=== PATIENT | female | born 1950 | race Caucasian/White ===

== ENCOUNTER 2019-12-04 16:42 | Emergency (ER) | payer MEDICARE ==
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
[2019-12-04 17:57] VITALS: BP 136/84; TEMP 97.9; O2SAT 95
== END 2019-12-04 17:40 | disposition left against medical advice (07) ==
LOC: ER 16:42
DX: G40.909 Epilepsy, unspecified, not intractable, without status epilepticus (principal); R55 Syncope and collapse; V47.5XXA Car driver injured in collision with fixed or stationary object in traffic accident, initial encounter
CPT/HCPCS: 99283

== ENCOUNTER 2019-12-30 11:38 | Emergency (ER) | payer MEDICARE ==
[2019-12-30] MEDS ORDERED: LORazepam 2 MG/ML VIAL ONE (12:46)
[2019-12-30 12:48] LABS: Absolute Lymphocytes (CBC) 0.9 K/uL (0.7-4.9); Basophils % 1.1 % (0-1.3); Hematocrit 38.2 % (36.0-45.0); Lymphocytes % 25.9 % (15.3-44.8); MPV 8.4 fL (7.6-11.3); RBC Red Blood Cell Count 4.31 M/uL (3.86-4.86)
[2019-12-30 13:16] LABS: BUN Blood Urea Nitrogen 12 mg/dL (7-18); Bicarbonate 29 mmol/L (21-32); Glucose Level 100 mg/dL (74-106); Potassium 4.2 mmol/L (3.5-5.1); Sodium Level 141 mmol/L (136-145); Troponin (Emerg Dept Use Only) < 0.02 ng/mL (0.0-0.045)
--- NOTE | 2019-12-30 13:24 | RAD REPORT ---
EXAM DESCRIPTION: RAD - C Spine Ap/Lat - 12/30/2019 1:18 pm CLINICAL HISTORY: PAIN Radiculopathy COMPARISON: No comparisons FINDINGS: Cervical bodies are normal in height and alignment.No fracture or acute bony process seen. Multilevel disc thinning with posterior osteophyte formation throughout the cervical spine compatible with moderate cervical spondylosis. No prevertebral soft tissue thickening or other suspicious soft tissue finding. The odontoid is normal and the lateral masses are symmetric. IMPRESSION: Moderate degenerative cervical spondylosis.
--- NOTE | 2019-12-30 13:26 | RAD REPORT ---
EXAM DESCRIPTION: RAD - Chest Single View - 12/30/2019 1:18 pm CLINICAL HISTORY: BLUNT CHEST TRAUMA Chest pain. COMPARISON: No comparisons FINDINGS: Portable technique limits examination quality. Mild linear atelectasis is present in the left lung base. The heart is normal in size. Fracture of th e distal right clavicle suspected, age undetermined. Advise correlation with point tenderness in this region.
--- NOTE | 2019-12-30 13:27 | RAD REPORT ---
EXAM DESCRIPTION: RAD - Humerus Right - 12/30/2019 1:18 pm CLINICAL HISTORY: PAIN Fall, trauma, pain COMPARISON: No comparisons FINDINGS: No fracture of the humerus is seen. There is bony irregularity of the distal right clavicl e suggesting fracture, age undetermined. Correlation with point tenderness in this region is advised. No dislocation evident.
[2019-12-30 14:19] VITALS: TEMP 98.1
[2019-12-30 14:20] VITALS: O2SAT 96
[2019-12-30 14:21] VITALS: BP 120/67
--- NOTE | 2019-12-31 12:53 | EKG ---
Test Date: 2019-12-30 Test Time: 12:32:08 Production Director: EMILY MEASUREMENT RESULTS: Intervals: Rate: 79 WV: 164 QRSD: 70 QT: 350 QTc: 401 [place]: P: 61 WV: 164 QRS: 54 T: 52 INTERPRETIVE STATEMENTS: Normal sinus rhythm Low voltage QRS Borderline ECG No previous ECG available for comparison Electronically Signed On 12-31-19 12:50:40 CDT by Sumanth Resendiz
--- NOTE | 2020-01-05 13:18 | ER ---
Nurse's Notes [facility] Name: Kandis Marcum Age: 69 yrs Sex: Female : 1950 Arrival Date: 12/30/2019 Time: 11:39 Bed 6 Private MD: Diagnosis: Nondisplaced fracture of lateral end of right clavicle Presentation: 12/29 11:40 Onset of symptoms was December 2019. aa5 11:40 Chief complaint: Patient states: "I passed out a couple of days ago and my right aa5 shoulder is hurting". Pt denies nausea/vomiting. Pt reports she does not recall details before or after syncopal episode. 11:40 Acuity: MICHAEL 3 aa5 11:40 Method Of Arrival: Ambulatory aa5 11:40 Coronavirus screen: Proceed with normal triage. Patient denies a cough. Patient denies aa5 shortness of breath or difficulty breathing. Patient denies measured and/or subjective temperature greater than 100.4F prior to today's visit. Patient denies travel on a cruise ship or to a country the [facility] currently lists as an affected area. Patient denies contact with known and/or suspected case of COVID-19. Ebola Screen: Patient negative for fever greater than or equal to 101.5 degrees Fahrenheit, and additional compatible Ebola Virus Disease symptoms. Initial Sepsis Screen: Does the patient meet any 2 criteria? No. Patient's initial sepsis screen is negative. Does the patient have a suspected source of infection? No. Patient's initial sepsis screen is negative. Risk Assessment: Do you want to hurt yourself or someone else? Patient reports no desire to harm self or others. Historical: - Allergies: 11:40 No Known Allergies; aa5 - Home Meds: 11:40 Dilantin Oral [Active]; aa5 - PMHx: 11:40 epilepsy; aa5 - PSHx: 11:40 right knee; aa5 - Immunization history:: Adult Immunizations unknown. - Social history:: Smoking status: Patient denies any tobacco usage or history of. - Family history:: not pertinent. - Hospitalizations: : No recent hospitalization is reported. Screenin:48 Abuse screen: Denies threats or abuse. Denies injuries from another. Nutritional jl7 screening: No deficits noted. Tuberculosis screening: No symptoms or risk factors identified. Fall Risk Fall in past 12 months (25 points). Secondary diagnosis (15 points) seizures, IV access (20 points). Total Sanchez Fall Scale indicates High Risk Score (45 or more points). Fall prevention measures have been instituted. Side Rails Up X 2 Placed Close to Nursing Station Frequent Obs/Assessments Occuring As available patient and family educated on Fall Prevention Program and Strategies. Assessment: 12:20 General: Appears in no apparent distress. uncomfortable, Behavior is cooperative, jl7 anxious. Pain: Complains of pain in right shoulder Pain does not radiate. Pain currently is 7 out of 10 on a pain scale. Pain began 2-3 days ago. Is continuous. Neuro: Level of Consciousness is awake, alert, obeys commands, Oriented to person, place, time, situation. Cardiovascular: Patient's skin is warm and dry. Respiratory: Airway is patent Respiratory effort is even, unlabored, Respiratory pattern is symmetrical, tachypnea. Derm: Skin is pink, warm \\T\\ dry. Bruising that is brown, yellow, on anterior aspect of right upper chest. Musculoskeletal: Range of motion: limited in right shoulder. 12:35 Reassessment: Pt states "I have an ora prior to having a seizure and I'm having renee vu jl7 right now." Seizure pads placed on bed, ERD notified, VO for 0.5 mg Ativan IVP. 12:47 Reassessment: Pt to x-ray via stretcher. jl7 13:20 Reassessment: Pt returned from x-ray. jl7 14:09 Reassessment: Patient is alert, oriented x 3, equal unlabored respirations, skin aa5 warm/dry/pink. 14:09 Reassessment: Sling applied to right arm . aa5 Vital Signs: 11:40 BP 120 / 66; Pulse 72; Resp 18 S; Temp 98.1(O); Pulse Ox 98% on R/A; Weight 79.38 kg aa5 (R); Height 5 ft. 3 in. (160.02 cm) (R); Pain 7/10; 12:15 BP 116 / 69; Pulse 79; Resp 19; Pulse Ox 96% ; jl7 13:40 BP 120 / 67; Pulse 77; Resp 14 S; Pulse Ox 96% on R/A; jl7 11:40 Body Mass Index 31.00 (79.38 kg, 160.02 cm) aa5 ED Course: 11:39 Patient arrived in ED. as 11:39 Arm band placed on Patient placed. aa5 11:50 Tobi Saravia MD is Attending Physician. rn 11:56 Triage completed. aa5 12:10 Raymond Ruano, RN is Primary Nurse. jl7 12:30 Initial lab(s) drawn, by me, sent to lab. EKG done, by ED staff, reviewed by Tobi Saravia MD. Inserted saline lock: 20 gauge in left antecubital area, using aseptic technique. Blood collected. 12:48 Patient has correct armband on for positive identification. Placed in gown. Bed in low jl7 position. Call light in reach. Side rails up X2. Seizure precautions initiated. laboratory monitor on. Pulse ox on. NIBP on. 13:20 XRAY Humerus RIGHT In Process Unspecified. EDMS 13:20 XRAY Chest (1 view) In Process Unspecified. EDMS 13:20 XRAY C Spine Ap/lat In Process Unspecified. EDMS 13:42 Fracisco Barr MD is Referral Physician. rn 14:09 No provider procedures requiring assistance completed. IV discontinued, intact, aa5 bleeding controlled, No redness/swelling at site. Pressure dressing applied. Administered Medications: 12:45 Drug: Ativan 0.5 mg Route: IVP; Site: left antecubital; jl7 Outcome: 13:42 Discharge ordered by MD. rn 14:09 Discharged to home ambulatory. aa5 14:09 Condition: stable 14:09 Discharge instructions given to patient, Instructed on discharge instructions, follow up and referral plans. medication usage, Demonstrated understanding of instructions, follow-up care. 14:11 Patient left the ED. aa5 Signatures: Dispatcher [employer] Ariadna Lord Roman, MD MD rn Calderon, Audri, RN RN aa5 Raymond Ruano, DORENE CATHERINE jl7
--- NOTE | 2020-01-05 13:18 | EDPHYS ---
Physician Documentation [facility] Name: Kandis Marcum Age: 69 yrs Sex: Female : 1950 Arrival Date: 12/30/2019 Time: 11:39 Bed 6 Private MD: ED Physician Tobi Saravia HPI: 12/29 13:37 This 69 yrs old Female presents to ER via Ambulatory with complaints of rn Passed Out 3 days ago, Shoulder Injury. 13:37 The patient has experienced syncope. Onset: The symptoms/episode began/occurred 3 rn day(s) ago. Duration: This was a single episode. Associated injury: Other: decreased range of motion, pain. The patient has not experienced similar symptoms in the past. Reports passed out 3 days ago, fell, hurt right shoulder on that fall. Reports several episode in past of syncope, has been worked up before without known problems. Denies heart problems. Does have epilepsy, but compliant with dilantin. No headache.. Historical: - Allergies: 11:40 No Known Allergies; aa5 - Home Meds: 11:40 Dilantin Oral [Active]; aa5 - PMHx: 11:40 epilepsy; aa5 - PSHx: 11:40 right knee; aa5 - Immunization history:: Adult Immunizations unknown. - Social history:: Smoking status: Patient denies any tobacco usage or history of. - Family history:: not pertinent. - Hospitalizations: : No recent hospitalization is reported. ROS: 13:37 Constitutional: Negative for fever, chills, and weight loss, Eyes: Negative for injury, rn pain, redness, and discharge, Neck: + mild neck pain Cardiovascular: Negative for palpitations, and edema, Respiratory: Negative for shortness of breath, cough, wheezing, and pleuritic chest pain, Abdomen/GI: Negative for abdominal pain, nausea, vomiting, diarrhea, and constipation, Back: Negative for injury and pain, MS/Extremity: + right shoulder and collarbone pain Skin: Negative for injury, rash, and discoloration, Neuro: Negative for headache, weakness, numbness, tingling, and seizure. Exam: 13:10 ECG was reviewed by the Attending Physician. rn 13:37 Constitutional: This is a well developed, well nourished patient who is awake, alert, rn and in no acute distress. Head/Face: Normocephalic, atraumatic. Neck: No midline tenderness, + mild right pericervical tenderness Chest/axilla: Normal chest wall appearance and motion. Nontender with no deformity. No lesions are appreciated. No focal rib tenderness Cardiovascular: Regular rate and rhythm. No pulse deficits. Respiratory: No increased work of breathing, no retractions or nasal flaring. Abdomen/GI: soft, non-tender Back: No spinal tenderness. No costovertebral tenderness. Full range of motion. MS/ Extremity: Pulses equal, no cyanosis. + right distal clavicle tenderness, pain with elevation near horizontal, + ecchymosis right axilla and near shoulder joint. No open wounds. Neuro: Awake and alert, GCS 15, oriented to person, place, time, and situation. Cranial nerves II-XII grossly intact. Motor strength 5/5 in all extremities. Sensory grossly intact. Vital Signs: 11:40 BP 120 / 66; Pulse 72; Resp 18 S; Temp 98.1(O); Pulse Ox 98% on R/A; Weight 79.38 kg aa5 (R); Height 5 ft. 3 in. (160.02 cm) (R); Pain 7/10; 12:15 BP 116 / 69; Pulse 79; Resp 19; Pulse Ox 96% ; jl7 13:40 BP 120 / 67; Pulse 77; Resp 14 S; Pulse Ox 96% on R/A; jl7 11:40 Body Mass Index 31.00 (79.38 kg, 160.02 cm) aa5 MDM: 11:50 Patient medically screened. rn 12:39 ED course: Pt became anxious, hyperventilating, states sometimes gets like this before rn seizure, given 0.5 mg ativan for anxiety and pre-medication for possible seizure. . 13:37 Differential Diagnosis: right clavicle fracture, humerus fracture. Data reviewed: vital rn signs, nurses notes, radiologic studies, plain films, and as a result, I will discharge patient. Counseling: I had a detailed discussion with the patient and/or guardian regarding: the historical points, exam findings, and any diagnostic results supporting the discharge/admit diagnosis, radiology results, the need for outpatient follow up, to return to the emergency department if symptoms worsen or persist or if there are any questions or concerns that arise at home. Response to treatment: the patient's symptoms have mildly improved after treatment, and as a result, I will discharge patient. Special discussion: I discussed with the patient/guardian in detail that at this point there is no indication for admission to the hospital. It is understood, however, that if the symptoms persist or worsen the patient needs to return immediately for re-evaluation. Based on the history and exam findings, there is no indication for further emergent testing or inpatient evaluation. I discussed with the patient/guardian the need to see the orthopedic surgeon for further evaluation of the symptoms. 12/29 11:59 Order name: CBC with Diff; Complete Time: 13:18 rn 12/29 11:59 Order name: Basic Metabolic Panel; Complete Time: 13:33 rn 12/29 11:59 Order name: XRAY Humerus RIGHT; Complete Time: 13:33 rn 12/29 11:59 Order name: Troponin (emerg Dept Use Only); Complete Time: 13:33 rn 12/29 12:43 Order name: Add On-Lab eb 12/29 12:45 Order name: Phenytoin (Dilantin) Level; Complete Time: 13:33 EDMS 12/29 11:59 Order name: XRAY Chest (1 view); Complete Time: 13:33 rn 12/29 11:59 Order name: XRAY C Spine Ap/lat; Complete Time: 13:33 rn 12/29 11:59 Order name: IV Start; Complete Time: 12:42 rn 12/29 11:59 Order name: EKG; Complete Time: 12:00 rn 12/29 11:59 Order name: EKG - Nurse/Tech; Complete Time: 12:42 rn 12/29 11:59 Order name: Sling; Complete Time: 14:11 rn EC:10 Rate is 79 beats/min. Rhythm is regular. QRS [place] is Normal. [place] interval is normal. QRS rn interval is normal. QT interval is normal. No Q waves. T waves are Normal. No ST changes noted. Clinical impression: NSR w/ Non-specific ST/T Changes. Interpreted by me. Reviewed by me. Administered Medications: 12:45 Drug: Ativan 0.5 mg Route: IVP; Site: left antecubital; jl7 Disposition: 12/30/19 13:42 Discharged to Home. Impression: Nondisplaced fracture of lateral end of right clavicle. - Condition is Stable. - Discharge Instructions: Clavicle Fracture. - Medication Reconciliation Form, Thank You Letter, Antibiotic Education, Prescription Opioid Use form. - Follow up: Fracisco Barr MD; When: 1 week; Reason: Recheck today's complaints, Re-evaluation by your physician. - Problem is new. - Symptoms have improved. Signatures: Dispatcher [employer] EDMS Tobi Saravia MD MD rn Calderon, Audri RN RN aa5 Raymond Ruano RN RN jl7 Corrections: (The following items were deleted from the chart) 14:11 13:42 12/30/2019 13:42 Discharged to Home. Impression: Nondisplaced fracture of lateral aa5 end of right clavicle. Condition is Stable. Forms are Medication Reconciliation Form, Thank You Letter, Antibiotic Education, Prescription Opioid Use. Follow up: Fracisco Barr; When: 1 week; Reason: Recheck today's complaints, Re-evaluation by your physician. Problem is new. Symptoms have improved. rn
== END 2019-12-30 14:11 | disposition home or self-care (01) ==
LOC: ER 11:38
DX: S42.034A Nondisplaced fracture of lateral end of right clavicle, initial encounter for closed fracture (principal); R55 Syncope and collapse; G40.909 Epilepsy, unspecified, not intractable, without status epilepticus; W19.XXXA Unspecified fall, initial encounter; Y93.9 Activity, unspecified; Y92.9 Unspecified place or not applicable
CPT/HCPCS: 36415; 71045; 72040; 80048; 80185; 84484; 85025; 93005; 96374; 99284

== ENCOUNTER 2020-01-12 17:24 | Emergency (ER) | payer MEDICARE ==
--- NOTE | 2020-01-12 18:07 | EDPHYS ---
Physician Documentation [facility] Name: Kandis Marcum Age: 69 yrs Sex: Female : 1950 Arrival Date: 01/12/2020 Time: 17:30 Bed 27 Private MD: ED Physician Nghia Ko HPI: 01/11 17:40 This 69 yrs old Female presents to ER via EMS with complaints of syncope and cp collapse. 17:40 The patient has experienced syncope, collapsed, lost consciousness. cp 17:40 Onset: The symptoms/episode began/occurred just prior to arrival. Duration: This was a cp single episode, that lasted an unknown period of time. Context: the episode(s) was witnessed, by a bystander, occurred at a store, occurred while the patient was walking, Just prior to the episode the patient experienced no apparent symptoms. Associated injury: Right upper extremity: pain. Associated signs and symptoms: Pertinent negatives: abdominal pain, chest pain, dizziness, headache, vomiting, weakness. Current symptoms: right shoulder pain. The patient has experienced a previous episode, approximately 2 weeks ago. Historical: - Allergies: 17:30 No Known Allergies; aa5 - Home Meds: 17:30 Dilantin Oral [Active]; aa5 - PMHx: 17:30 epilepsy; aa5 ROS: 17:43 Neuro: Positive for syncope, Negative for altered mental status, headache, weakness. cp 17:43 Eyes: Negative for injury, pain, redness, and discharge. cp 17:43 Constitutional: Negative for body aches, chills, fever, poor PO intake. 17:43 Neck: Negative for pain with movement, pain at rest, stiffness. 17:43 Cardiovascular: Negative for chest pain, edema, palpitations. 17:43 Abdomen/GI: Negative for abdominal pain, vomiting, diarrhea, constipation, black/tarry stool, rectal bleeding. 17:43 MS/extremity: Positive for pain, of the right shoulder, Negative for decreased range of motion, deformity. 17:43 All other systems are negative. cp Exam: 17:48 Constitutional: The patient appears in no acute distress, alert, awake, cp non-diaphoretic, non-toxic, well developed, well nourished. 17:48 Head/Face: Normocephalic, atraumatic. cp 17:48 Eyes: Periorbital structures: appear normal, Pupils: equal, round, and reactive to light and accomodation, Extraocular movements: intact throughout, Conjunctiva: normal, no exudate, no injection, Sclera: no appreciated abnormality, Lids and lashes: appear normal, bilaterally. 17:48 ENT: External ear(s): are unremarkable, Ear canal(s): are normal, clear, TM's: dullness, bilaterally, Nose: is normal, Mouth: Lips: moist, Oral mucosa: pink and intact, moist, Posterior pharynx: is normal, airway is patent, no erythema, no exudate. 17:48 Neck: C-spine: vertebral tenderness, is not appreciated, crepitus, is not appreciated, ROM/movement: pain, is not appreciated, limited range of motion, is not appreciated. 17:48 Chest/axilla: Inspection: normal, Palpation: is normal, no crepitus, no tenderness. 17:48 Cardiovascular: Rate: normal, Rhythm: regular, Edema: is not appreciated, JVD: is not appreciated. 17:48 Respiratory: the patient does not display signs of respiratory distress, Respirations: normal, no use of accessory muscles, no retractions, labored breathing, is not present, Breath sounds: are clear throughout, no decreased breath sounds. 17:48 Abdomen/GI: Inspection: abdomen appears normal, Palpation: abdomen is soft and non-tender, in all quadrants. 17:48 Back: vertebral tenderness, is not appreciated. 17:48 Musculoskeletal/extremity: Extremities: grossly normal except: noted in the right shoulder: pain, tenderness, There is no evidence of deformity, ROM: limited passive range of motion due to pain, in the right shoulder, Pulses: noted to be 2+ in the right radial artery and left radial artery, Sensation intact. 17:48 Skin: no rash present. 17:48 Neuro: Orientation: to person, place \T\ time. Mentation: is normal, Cerebellar function: is grossly normal, Motor: moves all fours, strength is normal, Sensation: is normal. Vital Signs: 17:30 BP 129 / 83; Pulse 83; Resp 16 S; Temp 99.8(O); Pulse Ox 99% on R/A; Pain 0/10; aa5 MDM: 17:44 Patient medically screened. cp 17:45 Differential Diagnosis: cardiac arrhythmia, cerebrovascular accident, GI bleed, cp seizure, vasovagal episode. 18:05 Data reviewed: vital signs, nurses notes, I have discussed the patient's cp presentation/case with the attending Emergency Department Physician;. 18:05 Refusal of service: The patient/guardian displays adequate decision making capability cp and despite a detailed discussion of alternatives, benefits, risks, and consequences refuses: CT Scan, all lab tests. 18:05 ED course: VSS. Patient is able to make informed decisions and refuses labs and cp radiology studies. Patient requesting to leave w/o further evaluation for unknown reason. 01/11 17:35 Order name: EKG; Complete Time: 17:36 cp 01/11 17:35 Order name: Cardiac monitoring; Complete Time: 18:29 cp 01/11 17:35 Order name: EKG - Nurse/Tech; Complete Time: 18:29 cp 01/11 17:35 Order name: O2 Per Protocol; Complete Time: 18:29 cp 01/11 17:35 Order name: O2 Sat Monitoring; Complete Time: 18:29 cp Administered Medications: No medications were administered Disposition: 01/12 09:03 Co-signature as Attending Physician, Nghia Ko MD I agree with the assessment and kdr plan of care. Disposition: 01/12/20 18:06 Patient has left against medical advice. Impression: Syncope and collapse. - Patients states they are going to Home. - Condition is Stable. - Discharge Instructions: Syncope. Follow up: Private Physician; When: 1 - 2 days; Reason: Recheck today's complaints. - Problem is new. - Symptoms have improved. Signatures: Dispatcher [employer] [facility] Nghia Ko MD MD [facility] Megan Nava, RN RN aa5 Crow Colón PA PA cp Janette Calderón, RN RN ls4 Corrections: (The following items were deleted from the chart) 01/11 18: 17:35 Chest Single View+RAD.RAD.BRZ ordered. [facility] 18: 18:06 01/12/2020 18:06 Patients has left against medical advice. Impression: Syncope ls4 and collapse. Patient states they are going to Home. Condition is Stable. Follow up: Private Physician; When: 1 - 2 days; Reason: Recheck today's complaints. Problem is new. Symptoms have improved. cp
--- NOTE | 2020-01-12 18:10 | ER ---
Nurse's Notes [facility] Name: Kandis Marcum Age: 69 yrs Sex: Female : 1950 Arrival Date: 01/12/2020 Time: 17:30 Bed 27 Private MD: Diagnosis: Syncope and collapse Presentation: 01/11 17:30 Chief complaint: EMS states: syncopal episode at [facility]. Pt also reports broken right aa5 clavicle x 2 weeks ago. Pt reports mild dizziness at this time. Denies any pain. 17:30 Coronavirus screen: Proceed with normal triage. Patient denies a cough. Patient denies aa5 shortness of breath or difficulty breathing. Patient denies measured and/or subjective temperature greater than 100.4F prior to today's visit. Patient denies travel on a cruise ship or to a country the [facility] currently lists as an affected area. Patient denies contact with known and/or suspected case of COVID-19. Ebola Screen: Patient negative for fever greater than or equal to 101.5 degrees Fahrenheit, and additional compatible Ebola Virus Disease symptoms. Initial Sepsis Screen: Does the patient meet any 2 criteria? No. Patient's initial sepsis screen is negative. Does the patient have a suspected source of infection? No. Patient's initial sepsis screen is negative. Risk Assessment: Do you want to hurt yourself or someone else? Patient reports no desire to harm self or others. 17:30 Acuity: MICHAEL 3 aa5 17:30 Method Of Arrival: EMS: [facility] aa5 Triage Assessment: 17:30 General: Appears in no apparent distress. comfortable. ls4 17:30 Pain:. Pain: Complains of pain in anterior aspect of right shoulder and right elbow ls4 Pain currently is 6 out of 10 on a pain scale. Neuro: Level of Consciousness is awake, alert, obeys commands, Oriented to person, place, time, situation, Crew Mess Attendant are equal bilaterally Moves all extremities. Gait is steady, Speech is normal, Facial symmetry appears normal, Pupils are PERRLA, Reports a syncopal episode. Respiratory: Airway is patent Respiratory effort is even, unlabored. Injury Description: denies injury today,. pt states her right arm and clavicle were injured 2 weeks ago. Historical: - Allergies: 17:30 No Known Allergies; aa5 - Home Meds: 17:30 Dilantin Oral [Active]; aa5 - PMHx: 17:30 epilepsy; aa5 Assessment: 17:30 General: Appears comfortable, Behavior is calm, cooperative. Pain: Denies pain. Neuro: aa5 Level of Consciousness is awake, alert, obeys commands, Oriented to person, place, time, situation, Crew Mess Attendant are equal bilaterally Moves all extremities. Speech is normal, Facial symmetry appears normal, Pupils are PERRLA, Reports mild dizziness . Cardiovascular: Heart tones S1 S2 present Rhythm is regular. Respiratory: Airway is patent Respiratory effort is even, unlabored, Respiratory pattern is regular, symmetrical. GI: No signs and/or symptoms were reported involving the gastrointestinal system. Patient currently denies nausea, vomiting, Parent/caregiver reports the patient having constipation. : Reports "dark urine" Denies burning with urination, inability to void. EENT: No signs and/or symptoms were reported regarding the EENT system. Derm: Skin is pink, warm \\T\\ dry. Musculoskeletal: Range of motion: intact in all extremities. 17:50 Reassessment: Pt refusing any treatment at this time. Pt states "I left the garage door aa5 open and I am also worried about my dogs, I just want to go home right now". Explained to pt leaving the ER is not recommended and pt states "I just want to leave right now". Pt states "I just need to call a taxi to get home because my is in [place]". Called taxi for pt and ETA is 15 minutes. . 18:09 Reassessment: Patient is alert, oriented x 3, equal unlabored respirations, skin aa5 warm/dry/pink. Neuro: Gait is steady. Vital Signs: 17:30 BP 129 / 83; Pulse 83; Resp 16 S; Temp 99.8(O); Pulse Ox 99% on R/A; Pain 0/10; aa5 ED Course: 17:30 Patient arrived in ED. em1 17:34 Crow Colón PA is PHCP. cp 17:34 Nghia Ko MD is Attending Physician. cp 17:40 Missed attempt(s): 20 gauge in right antecubital area. Bleeding controlled, band aid aa5 applied, catheter tip intact. 17:40 EKG done, by ED staff, reviewed by Nghia Ko MD. aa5 17:40 Patient has correct armband on for positive identification. Bed in low position. Call aa5 light in reach. Side rails up X2. quiller operator on. Pulse ox on. NIBP on. 17:57 Mercy Sands, RN is Primary Nurse. dm5 18:40 Triage completed. aa5 Administered Medications: No medications were administered Outcome: 18:00 AMA AMA form signed aa5 18:00 Condition: stable 18:09 Patient left the ED. ls4 Signatures: Mercy Sands, RN RN dm5 Fernando Fernández em1 Megan Nava RN RN aa5 Crow Colón PA PA cp Stewart, Lisa, RN RN ls4 Corrections: (The following items were deleted from the chart) 18:43 17:30 Method Of Arrival: EMS aa5 aa5
--- NOTE | 2020-01-13 06:35 | EKG ---
Test Date: 2020-01-12 Test Time: 17:42:35 Spirits Model: FAUSTO MEASUREMENT RESULTS: Intervals: Rate: 89 [place]: 154 QRSD: 84 QT: 384 QTc: 467 [place]: P: 49 [place]: 154 QRS: 6 T: 35 INTERPRETIVE STATEMENTS: Normal sinus rhythm Low voltage QRS Cannot rule out Anterior infarct, age undetermined Abnormal ECG Compared to ECG 12/30/2019 12:32:08 Myocardial infarct finding now present Electronically Signed On 01-13-20 06:34:31 CDT by Sumanth Resendiz
--- NOTE | 2020-01-13 11:45 | EKG ---
Test Date: 2020-01-12 Test Time: 17:43:03 Proposition Player: FAUSTO MEASUREMENT RESULTS: Intervals: Rate: 87 [place]: 154 QRSD: 88 QT: 386 QTc: 464 [place]: P: 42 [place]: 154 QRS: 5 T: 29 INTERPRETIVE STATEMENTS: Normal sinus rhythm Low voltage QRS Cannot rule out Anterior infarct, age undetermined Abnormal ECG Compared to ECG 01/12/2020 17:42:35 No significant changes Electronically Signed On 01-13-20 11:43:14 CDT by Sumanth Resendiz
== END 2020-01-12 18:09 | disposition left against medical advice (07) ==
LOC: ER 17:24
DX: R55 Syncope and collapse (principal); M25.511 Pain in right shoulder; G40.909 Epilepsy, unspecified, not intractable, without status epilepticus
CPT/HCPCS: 93005; 99284

== ENCOUNTER 2020-01-19 11:56 | Emergency (ER) | payer MEDICARE ==
[2020-01-19] MEDS ORDERED: NA CHLORIDE 0.9% 500 ML ONE (12:23)
--- NOTE | 2020-01-19 12:33 | RAD REPORT ---
EXAM DESCRIPTION: CT - Head Brain Wo Cont - 01/19/2020 12:21 pm CLINICAL HISTORY: Syncope COMPARISON: None. TECHNIQUE: Computed axial tomography of the head was obtained. IV contrast was not requested. All CT scans are performed using dose optimization technique as appropriate and may include automated exposure control or mA/KV adjustment according to patient size. FINDINGS: An intracranial bleed is not seen . The ventricles are normal in caliber. No extra-axial fluid collection is noted. Fluid within the sinuses/ mastoids is not seen. IMPRESSION: No acute intracranial abnormality is seen. If patient's symptoms persist MRI of the bra in would be recommended.
[2020-01-19 12:43] LABS: Basophils % 0.9 % (0-1.3); Hematocrit 41.8 % (36.0-45.0); Lymphocytes % 19.5 % (15.3-44.8); MPV 8.3 fL (7.6-11.3); RBC Red Blood Cell Count 4.68 M/uL (3.86-4.86)
[2020-01-19 12:50] LABS: Protime INR 1.1
[2020-01-19 13:04] LABS: BUN Blood Urea Nitrogen 9 mg/dL (7-18); Bicarbonate 27 mmol/L (21-32); Glucose Level 111 mg/dL (74-106); Magnesium 2.1 mg/dL (1.8-2.4); Potassium 3.9 mmol/L (3.5-5.1); Sodium Level 141 mmol/L (136-145); Troponin (Emerg Dept Use Only) < 0.02 ng/mL (0.0-0.045)
--- NOTE | 2020-01-19 13:59 | ER ---
Nurse's Notes [facility] Name: Kandis Marcum Age: 70 yrs Sex: Female : 1950 Arrival Date: 01/19/2020 Time: 11:57 Bed 3 Private MD: Diagnosis: Syncope and collapse Presentation: 01/18 11:57 Chief complaint: EMS states: [facility], found down on floor by employee. No injuries noted. Hx of seizures, was postictal on scene, initial GCS13, BGL 127, 22g R hand established SUPPLY ANALYST. Coronavirus screen: Proceed with normal triage. Ebola Screen: No symptoms or risks identified at this time. Initial Sepsis Screen: Does the patient meet any 2 criteria? No. Patient's initial sepsis screen is negative. Does the patient have a suspected source of infection? No. Patient's initial sepsis screen is negative. Risk Assessment: Do you want to hurt yourself or someone else? Patient reports no desire to harm self or others. Onset of symptoms was January 19, 2020. 11:57 Method Of Arrival: EMS: [facility] 11:57 Acuity: MICHAEL 3 Triage Assessment: 12:02 General: Appears in no apparent distress. Behavior is calm, cooperative. Pain: Denies hb pain. EENT: No signs and/or symptoms were reported regarding the EENT system. Neuro: Level of Consciousness is awake, alert, obeys commands, Oriented to person, place, time, situation, Reports dizziness, x 3-4 weeks. Cardiovascular: Heart tones S1 S2 present Capillary refill < 3 seconds Patient's skin is warm and dry. Respiratory: Airway is patent Respiratory effort is even, unlabored, Respiratory pattern is regular, symmetrical, Breath sounds are clear bilaterally. GI: No signs and/or symptoms were reported involving the gastrointestinal system. : No signs and/or symptoms were reported regarding the genitourinary system. Derm: Skin is pink, warm \T\ dry. Musculoskeletal: No signs and/or symptoms reported regarding the musculoskeletal system. Historical: - Allergies: 12:01 No Known Allergies; hb - Home Meds: 12:01 Dilantin Oral [Active]; hb - PMHx: 12:01 epilepsy; hb - Immunization history:: Adult Immunizations up to date. - Social history:: Smoking status: Patient denies any tobacco usage or history of. - Family history:: not pertinent. - Hospitalizations: : No recent hospitalization is reported. Screenin:03 Abuse screen: Denies threats or abuse. Denies injuries from another. Nutritional hb screening: No deficits noted. Tuberculosis screening: No symptoms or risk factors identified. Fall Risk Total Sanchez Fall Scale indicates High Risk Score (45 or more points). Fall prevention measures have been instituted. Side Rails Up X 2 Frequent Obs/Assessments Occuring As available patient and family educated on Fall Prevention Program and Strategies. Assessment: 12:48 Reassessment: Vaughn [phone]. hb 13:14 Reassessment: Patient appears in no apparent distress at this time. Patient and/or hb family updated on plan of care and expected duration. Pain level reassessed. Patient is alert, oriented x 3, equal unlabored respirations, skin warm/dry/pink. Vital Signs: 11:57 BP 130 / 70; Pulse 84; Resp 16; Temp 98.8(TE); Pulse Ox 96% on R/A; Weight 83.01 kg; hb Height 5 ft. 8 in. (172.72 cm); Pain 0/10; 13:13 BP 133 / 68; Pulse 77; Resp 15; Pulse Ox 99% on R/A; hb 11:57 Body Mass Index 27.83 (83.01 kg, 172.72 cm) hb ED Course: 11:57 Patient arrived in ED. hb 12:01 Triage completed. hb 12:02 Arm band placed on. hb 12:03 Patient has correct armband on for positive identification. Bed in low position. Call hb light in reach. Side rails up X 1. 12:08 Tobi Saravia MD is Attending Physician. rn 12:16 Yi Huynh, DORENE is Primary Nurse. hb 12:21 CT Head Brain wo Cont In Process Unspecified. EDMS 12:27 EKG done, by ED staff, reviewed by Tobi Saravia MD. 3 14:13 No provider procedures requiring assistance completed. IV discontinued, intact, vc bleeding controlled, No redness/swelling at site. Pressure dressing applied. Administered Medications: 12:47 Drug: NS 0.9% 500 ml Route: IV; Rate: bolus; Site: right hand; hb Outcome: 13:58 Discharge ordered by . rn 14:14 Discharged to home via wheelchair. vc 14:14 Condition: good 14:14 Discharge instructions given to patient, family, Instructed on discharge instructions, follow up and referral plans. Demonstrated understanding of instructions, follow-up care. 14:14 Patient left the ED. vc Signatures: Dispatcher [employer] EDMS Tobi Saravia MD MD rn Baxter, Heather, RN RN Hernandez, Barbara 3 Anaya Noriega RN RN vc Corrections: (The following items were deleted from the chart) 12:02 11:57 Chief complaint: EMS states: Syncopal episode while shopping at [employer], found hb down on floor by employee. No injuries noted. Hx of seizures, was postictal on scene, initial GCS13, 22g R hand established SUPPLY ANALYST. hb 12:04 11:57 BP 130 / 70; Pulse 84bpm; Resp 16bpm; Pulse Ox 96% RA; Temp 99.1F Temporal; 83.01 hb kg; Height 5 ft. 8 in.; BMI: 27.8; Pain 0/10; hb
--- NOTE | 2020-01-19 13:59 | EDPHYS ---
Physician Documentation [facility] Name: Kandis Marcum Age: 70 yrs Sex: Female : 1950 Arrival Date: 01/19/2020 Time: 11:57 Bed 3 Private MD: ED Physician Tobi Saravia HPI: 01/18 12:50 This 70 yrs old Female presents to ER via EMS with complaints of Syncope. rn 12:50 The patient has experienced syncope, collapsed. Onset: The symptoms/episode rn began/occurred just prior to arrival. Duration: This was a single episode. Associated injury: The patient did not suffer any apparent associated injury. Associated signs and symptoms: Pertinent negatives: abdominal pain, chest pain, confusion, seizure, shortness of breath, vomiting, weakness. The patient has not experienced similar symptoms in the past. The patient has not recently seen a physician. Reports was at [facility], felt fine, no recent problems other than intermittent dizziness. Was in pet aisle, and then woke up on ground with people above her. EMS reports seemed post-ictal with gradual improvement back to baseline, now back to baseline without complaint. Patient reports feels different from previous seizures. Does report taking dilantin as scheduled and also recently increased. Dizziness worse with turning head. . Historical: - Allergies: 12:01 No Known Allergies; hb - Home Meds: 12:01 Dilantin Oral [Active]; hb - PMHx: 12:01 epilepsy; hb - Immunization history:: Adult Immunizations up to date. - Social history:: Smoking status: Patient denies any tobacco usage or history of. - Family history:: not pertinent. - Hospitalizations: : No recent hospitalization is reported. ROS: 12:50 Constitutional: Negative for fever, chills, and weight loss, Eyes: Negative for injury, rn pain, redness, and discharge, Neck: Negative for injury, pain, and swelling, Cardiovascular: Negative for chest pain, palpitations, and edema, Respiratory: Negative for shortness of breath, cough, wheezing, and pleuritic chest pain, Abdomen/GI: Negative for abdominal pain, nausea, vomiting, diarrhea, and constipation, MS/Extremity: Negative for injury and deformity, Skin: Negative for injury, rash, and discoloration, Neuro: Negative for headache, weakness, numbness, tingling, and seizure. Exam: 12:50 Constitutional: This is a well developed, well nourished patient who is awake, alert, rn and in no acute distress. Head/Face: Normocephalic, atraumatic. Eyes: Pupils equal round and reactive to light, extra-ocular motions intact. Lids and lashes normal. Conjunctiva and sclera are non-icteric and not injected. Cornea within normal limits. Periorbital areas with no swelling, redness, or edema. Cardiovascular: Regular rate and rhythm. No pulse deficits. Respiratory: Lungs have equal breath sounds bilaterally, clear to auscultation. No increased work of breathing, no retractions or nasal flaring. Abdomen/GI: Soft, non-tender MS/ Extremity: Pulses equal, no cyanosis. Neurovascular intact. Full, normal range of motion. Equal circumference. Neuro: Awake and alert, GCS 15, oriented to person, place, time, and situation. Cranial nerves II-XII grossly intact. Motor strength 5/5 in all extremities. Sensory grossly intact. Cerebellar exam normal. 13:44 ECG was reviewed by the Attending Physician. rn Vital Signs: 11:57 BP 130 / 70; Pulse 84; Resp 16; Temp 98.8(TE); Pulse Ox 96% on R/A; Weight 83.01 kg; hb Height 5 ft. 8 in. (172.72 cm); Pain 0/10; 13:13 BP 133 / 68; Pulse 77; Resp 15; Pulse Ox 99% on R/A; hb 11:57 Body Mass Index 27.83 (83.01 kg, 172.72 cm) hb MDM: 12:08 Patient medically screened. rn 13:58 Differential Diagnosis: cardiac arrhythmia, cerebrovascular accident, idiopathic rn syncope, seizure, transient ischemic attack, vasovagal episode. Data reviewed: vital signs, nurses notes, lab test result(s), EKG, radiologic studies, CT scan, and as a result, I will discharge patient. Counseling: I had a detailed discussion with the patient and/or guardian regarding: the historical points, exam findings, and any diagnostic results supporting the discharge/admit diagnosis, lab results, radiology results, the need for outpatient follow up, to return to the emergency department if symptoms worsen or persist or if there are any questions or concerns that arise at home. Response to treatment: the patient's symptoms have markedly improved after treatment, the patient's symptoms have resolved after treatment, the patient's condition has returned to base line, the patient is now symptom free, and as a result, I will discharge patient. Special discussion: I discussed with the patient/guardian in detail that at this point there is no indication for admission to the hospital. It is understood, however, that if the symptoms persist or worsen the patient needs to return immediately for re-evaluation. 01/18 12:09 Order name: Basic Metabolic Panel; Complete Time: 13:13 rn 01/18 12:09 Order name: CBC with Diff; Complete Time: 12:49 rn 01/18 12:09 Order name: Magnesium; Complete Time: 13: rn 01/18 12:09 Order name: Protime (+inr); Complete Time: 13:13 rn 01/18 12:09 Order name: Ptt, Activated; Complete Time: 13: rn 01/18 12:09 Order name: Troponin (emerg Dept Use Only); Complete Time: 13:13 rn 01/18 12:09 Order name: CT Head Brain wo Cont; Complete Time: 12:40 rn 01/18 12:09 Order name: EKG; Complete Time: 12:10 01/18 12:09 Order name: Cardiac monitoring; Complete Time: 12:47 rn 01/18 12:09 Order name: EKG - Nurse/Tech; Complete Time: 12:30 01/18 12:09 Order name: IV Saline Lock; Complete Time: 12:47 01/18 12:09 Order name: Labs collected and sent; Complete Time: 12:47 rn 01/18 12:09 Order name: Dilantin; Complete Time: 13:13 01/18 12:09 Order name: NPO; Complete Time: 12:47 01/18 12:09 Order name: O2 Per Protocol; Complete Time: 12:48 01/18 12:09 Order name: O2 Sat Monitoring; Complete Time: 12:48 rn EC:44 Rate is 77 beats/min. Rhythm is regular. QRS [place] is Normal. [place] interval is normal. QRS rn interval is normal. QT interval is normal. No Q waves. T waves are Normal. No ST changes noted. Clinical impression: NSR w/ Non-specific ST/T Changes. Interpreted by me. Reviewed by me. Administered Medications: 12:47 Drug: NS 0.9% 500 ml Route: IV; Rate: bolus; Site: right hand; hb Disposition: 01/19/20 13:58 Discharged to Home. Impression: Syncope and collapse. - Condition is Stable. - Discharge Instructions: Syncope. - Medication Reconciliation Form, Thank You Letter, Antibiotic Education, Prescription Opioid Use form. - Follow up: Private Physician; When: As needed; Reason: Recheck today's complaints, Re-evaluation by your physician. - Problem is new. - Symptoms have improved. Signatures: Dispatcher [employer] EDMS Tobi Saravia MD MD rn Baxter, Heather, RN RN Anaya Lawler RN RN vc Corrections: (The following items were deleted from the chart) 14:14 13:58 01/19/2020 13:58 Discharged to Home. Impression: Syncope and collapse. Condition vc is Stable. Forms are Medication Reconciliation Form, Thank You Letter, Antibiotic Education, Prescription Opioid Use. Follow up: Private Physician; When: As needed; Reason: Recheck today's complaints, Re-evaluation by your physician. Problem is new. Symptoms have improved. rn
[2020-01-19 14:23] VITALS: TEMP 98.8
[2020-01-19 14:25] VITALS: BP 133/68; O2SAT 99
== END 2020-01-19 14:14 | disposition home or self-care (01) ==
LOC: ER 11:56
DX: R55 Syncope and collapse (principal); G40.909 Epilepsy, unspecified, not intractable, without status epilepticus
CPT/HCPCS: 93005; 85025; 80048; 36415; 83735; 85610; 85730; 80185; 84484; 70450; 99284; J7040